=== PATIENT | female | born 1975 | race Caucasian/White ===

== ENCOUNTER 2017-01-24 11:54 | Emergency (ER) | payer MEDICAID ==
--- NOTE | 2017-01-24 11:57 | ED Physician Chart ---
Chief Complaint/HPI - Patient Information Date Seen:: 01/24/17 Time Seen:: 11:56 Chief Complaint:: scalp lesion History of Present Illness:: 41-year-old female complains of acute, worsening, constant, severe, scalp lesion on the crown of her head that has increased in size over the past 2 weeks. Patient reports associated loss of hair over the lesion. Denies head trauma, fevers, chills, headache, acute vision changes, numbness or tingling, nausea, vomiting. Historian:: Patient Review:: Nurse's Note Reviewed Review of Systems - Review of Systems Other: Complete system review otherwise unremarkable except as noted in history of present illness. Past Medical History - Past Medical History Past Medical History: No significant medical hx Family History: None Social History: Non Smoker, No Alcohol, No Drug Use, Employed Surgical History: None Psychiatricy History: None Medication: None Family Medical History - Family Member Mother History Unknown: Yes Ethnicity: Other Medical History: patient denies family medical history Physical Exam - Physical Examination Other:: INITIAL VITAL SIGNS: Reviewed by me GENERAL: Alert and interactive. No acute distress HEAD: Scalp of the head there is a 4 x 4 cm lesion on the scalp of the head over the crown area. This is a fluctuant mass. There is some surrounding erythema. Also loss of hair over the center of the lesion. EYES: EOMI. PERRL. No scleral icterus. No conjunctival injection ENT: Moist mucous membranes. NECK: Supple. No masses. Full range of motion RESPIRATORY: No tachypnea. Clear breath sounds bilaterally. No wheezing, rales, or rhonchi CV: Regular rate and rhythm. No murmurs, rubs, or gallops ABDOMEN: Soft, non-distended, non-tender. No guarding. No rebound. No masses. EXTREMITIES: No deformity. No cyanosis. No edema. SKIN: Warm and dry. No obvious rashes. NEUROLOGIC: Alert and oriented. Face is symmetric. Speech is normal. Moves all extremities equally. Motor and sensory distally intact. Assessment - Procedures Procedures:: Abscess Incision and Drainage with irrigation by me: Location: Scalp, crown Anesthesia: Local 1% Lidocaine Technique: Irrigated. Disrupted loculations w/ instrumentation Packin/4 inch iodoform Complications: Neurovascularly intact post procedure 48 hour wound check. Scar minimization instructions given. Informed Consent: Procedure/risk/benefits explained by MD: Yes ED Septic Shock - . Is Septic Shock (SBP<90, OR Lactate>4 mmol\L) present?: No Reassessment (Disposition) - Reassessment Reassessment:: Blood pressure was noted to be elevated over 120/80. There were no signs of hypertension. Discussed the findings with the patient and recommended that the patient follow up with the primary care physician regarding the elevated blood pressure. Patient had large abscess on the scalp. I&D was performed. Aerobic/anaerobic cultures were sent. There was some surrounding cellulitis. Provided prescription for Keflex and Bactrim. Recommended follow-up with primary care in 2 days for wound check and possible repacking. Return to ER precautions given. Patient says she understands and agrees with the plan. Reassessment Condition:: Improved - Diagnosis Diagnosis:: Acute abscess of the scalp Acute cellulitis of the scalp Elevated blood pressure without the diagnosis of hypertension - Aftercare/Follow up Instructions Aftercare/Follow-Up Instructions:: Counseled pt regarding lab results/diagnosis & need follow up, Refer to Discharge Instructions Medication Prescribed:: Keflex Bactrim DS - Patient Disposition Discharge/Transfer:: Home Time:: 12:56 Condition at Disposition:: Improved ED Discharge Plan - Patient Disposition Admit/Discharge/Transfer: PT DISCHARGED HOME Condition at Disposition: Improved Instructions: Abscess
[2017-01-24] MEDS ORDERED: Bacitracin pkt 1 gm Pkt TP STA (13:12)
[2017-01-24] MEDS ORDERED: Bacitracin pkt 1 gm Pkt TP ONE (13:14)
== END 2017-01-24 13:10 | disposition home or self-care (01) ==
LOC: ER 11:54
DX: L02.811 Cutaneous abscess of head [any part, except face] (principal); L03.811 Cellulitis of head [any part, except face]; I10 Essential (primary) hypertension
CPT/HCPCS: 99283; 10060; 87070; Z7610; J2001; Z7502

== ENCOUNTER 2017-01-27 08:36 | Emergency (ER) | payer MEDICAID ==
--- NOTE | 2017-01-27 09:04 | ED Physician Chart ---
Chief Complaint/HPI - Patient Information Date Seen:: 01/27/17 Time Seen:: 08:56 Chief Complaint:: wound check History of Present Illness:: THIS IS A 41 YO FEMALE WHO RETURNED TO THIS ER FOR A WOUND CHECK OF A CYST THAT WAS I AND D ON 01-24-17 AND PACKED. SHE WAS PLACED ON ANTIBIOTICS AND TOLD TO FOLLOWUP WITH HER PMD. Allergies:: Allergies Allergy/AdvReac Type Severity Reaction Status Date / Time No Known Allergies Allergy Verified 01/24/17 12:00 Vitals:: Vital Signs - 8 hr 01/27/17 08:47 Temp 98.2 F HR 87 RR 16 BP 145/94 O2 Sat % 99 Historian:: Patient Review:: Nurse's Note Reviewed Review of Systems - Review of Systems General/Constitutional: No fever, No chills, No weight loss, No weakness, No diaphoresis, No edema, No loss of appetite Skin: No skin lesions, No rash, No bruising Head: No headache, No light-headedness, Other (SCALP WOUND NOTED ON THE CROWN OF THE HEAD.) Eyes: No loss of vision, No pain, No diplopia ENT: No earache, No nasal drainage, No sore throat, No tinnitus Neck: No neck pain, No swelling, No thyromegaly, No stiffness, No mass noted Cardio Vascular: No chest pain, No palpitations, No PND, No orthopnea, No edema Pulmonary: No SOB, No cough, No sputum, No wheezing GI: No nausea, No vomiting, No diarrhea, No pain, No melena, No hematochezia, No constipation, No hematemesis G/U: No dysuria, No frequency, No hematuria Musculoskeletal: No bone or joint pain, No back pain, No muscle pain Endocrine: No polyuria, No polydipsia Psychiatric: No prior psych history, No depression, No anxiety, No suicidal ideation Hematopoietic: No bruising, No lymphadenopathy Allergic/Immuno: No urticaria, No angioedema Neurological: No syncope, No focal symptoms, No weakness, No paresthesia, No headache, No seizure, No dizziness, No confusion, No vertigo Past Medical History - Past Medical History Obtainable: Yes Past Medical History: No significant medical hx Family History: None Social History: Non Smoker, No Alcohol, No Drug Use Surgical History: None Psychiatricy History: None Family Medical History - Family Member Mother History Unknown: Yes Ethnicity: Living Status: Still Living Physical Exam - Physical Examination General/Constitutional: Awake, Well-developed, well-nourished, Alert, No distress, GCS 15, Non-toxic appearing, Ambulatory Head: Atraumatic (SCALP WOUND NOTED WITH THE DRAIN IN PLACE.) Eyes: Lids, conjuctiva normal, PERRL, EOMI Skin: Nl inspection, No rash, No skin lesions, No ecchymosis, Well hydrated, No lymphadenopathy ENMT: External ears, nose nl, Nasal exam nl, Lips, teeth, gums nl Neck: Nontender, Full ROM w/o pain, No JVD, No nuchal rigidity, No bruit, No mass, No stridor Respiratory: Nl effort/Exclusion, Clear to Auscultation, No Wheeze/Rhonchi/Rales Cardio Vascular: RRR, No murmur, gallop, rubs, NL S1 S2 GI: No tenderness/rebounding/guarding, No organomegaly, No hernia, Normal BS's, Nondistended, No mass/bruits, No McBurney tenderness : No CVA tenderness Extremities: No tenderness or effusion, Full ROM, normal strength in all extremities, No edema, Normal digits & nails Neuro/Psych: Alert/oriented, DTR's symmetric, Normal sensory exam, Normal motor strength, Judgement/insight normal, Mood normal, Normal gait, No focal deficits Misc: normal gait, Normal back, No paraspinal tenderness Assessment - Assessment General Assessment: PACKING REMOVED AND THE PATIENT TOLERATED WELL. SHE WAS TOLD TO SOAK IT TWICE A DAY AND CONTINUE THE TAKE THE ANTIBIOTICS. ED Septic Shock - . Is Septic Shock (SBP<90, OR Lactate>4 mmol\L) present?: No - <6hrs of presentation: Vital Signs: Vital Signs - 8 hr 01/27/17 08:47 Temp 98.2 F HR 87 RR 16 BP 145/94 O2 Sat % 99 Reassessment (Disposition) - Reassessment Reassessment Condition:: Improved - Diagnosis Diagnosis:: WOUND CHECK OF THE SCALP - Aftercare/Follow up Instructions Aftercare/Follow-Up Instructions:: Counseled pt regarding lab results/diagnosis & need follow up, Refer to Discharge Instructions, Counseled pt & family regarding lab results/diagnosis & need follow up - Patient Disposition Discharge/Transfer:: Home
== END 2017-01-27 09:15 | disposition home or self-care (01) ==
LOC: ER 08:36
DX: S00.00XD Unspecified superficial injury of scalp, subsequent encounter (principal); X58.XXXD Exposure to other specified factors, subsequent encounter
CPT/HCPCS: Z7502